=== PATIENT | female | born 1995 | race Caucasian/White ===

== ENCOUNTER → 2016-05-31 | Outpatient (CLI) | payer BC ==
[2016-01-21 11:48] VITALS: BP 120/68
[~2016-05-31] MED LIST: ETON68IM2 SQ; HYDR-971 PO; NAPR500T PO
--- NOTE | 2016-05-31 16:55 | RAD ---
INDICATION: Pelvic pain COMPARISON: None. TECHNIQUE: Grayscale and color ultrasound images uterus and adnexa. Transabdominal and transvaginal images obtained. FINDINGS: Uterus: 6.7 x 3.2 cm. Endometrial Stripe: 10 mm. Right Ovary: 2.8 x 2.0 x 1.8 cm. Flow Identified. Left Ovary: 3.2 x 3.7 x 1.8 cm. Flow Identified. There is fluid within the cervical region IMPRESSION: 1. Vascular flow seen to the bilateral ovaries. 2. Small free fluid in cervical region
== END | disposition home or self-care (01) ==
LOC: US 15:06
PROVIDERS: ATTEND Family Medicine
DX: R10.2 Pelvic and perineal pain (principal)
CPT/HCPCS: 76830; 76856

== ENCOUNTER → 2018-04-19 | Outpatient (CLI) | payer BC ==
[2016-01-21 11:48] VITALS: BP 120/68
[~2018-04-19] MED LIST changes: -ETON68IM2 SQ; +ETON68IM3 SQ; +HYDR-3164 PO; -HYDR-971 PO; +NAPR-683 PO; -NAPR500T PO
--- NOTE | 2018-04-19 15:39 | KCIC ---
CLINICAL INDICATION: Pelvic pain. Last menstrual period was 04/06/2018. COMPARISON: None available. TECHNIQUE: Transabdominal and endovaginal sonography was performed FINDINGS: The uterus measures 6.8 cm in length, 3.2 cm AP and 3.8 cm transverse. The endometrium measures 0.2 cm on endovaginal images. There is no focal myometrial abnormality. Trace fluid is seen within the cervix, incidentally seen. The right ovary measures 3.2 cm x 2.1 cm x 1.7 cm on endovaginal images. Flow is seen to the right ovary. The left ovary measures 2.3 cm x 1.8 cm x 2.3 cm on endovaginal images. Flow is seen to the left ovary. There is no free fluid. IMPRESSION: Incidentally noted trace fluid within the cervix. Otherwise normal sonographic survey of the uterus and adnexa without evidence of torsion or mass. Electronically signed by: Tawanda Venegas MD (04/19/2018 3:35 PM) [facility]
== END | disposition home or self-care (01) ==
LOC: KCIC US 14:30
PROVIDERS: ATTEND Family Medicine
DX: R10.2 Pelvic and perineal pain (principal)
CPT/HCPCS: 76830; 76856

== ENCOUNTER 2019-03-18 17:34 | Emergency (ER) | payer BC ==
[~2019-03-18] VITALS: Ht 170.2 cm; Wt 81.6 kg
[2019-03-18 18:53] LABS: BILIRUBIN,URINE SMALL (NEG); CLARITY,URINE CLEAR; COLOR,URINE AMBER; NITRITE,URINE NEGATIVE (NEG); PROTEIN,URINE 30 mg/dL (NEG-TRACE)
[2019-03-18 19:08] LABS: BACTERIA,URINE MANY /HPF (0-FEW); RBC,URINE RARE /HPF (0-2); SQUAMOUS EPITHELIAL CELL,UR MANY /LPF
[2019-03-18] MEDS ORDERED: IV NORMAL SALINE 1000ML BAG 1,000 ML IV ONE (19:15)
[2019-03-18 19:19] LABS: BASO % 0 % (0-3); EOS % 0 % (0-3); HEMATOCRIT 34.2 % (36.0-47.0); HEMOGLOBIN 11.8 g/dL (12.0-15.5); LYMPH % 9 % (24-48); MEAN CORPUSCULAR HEMOGLOBIN 29 pg (25-35); MEAN CORPUSCULAR HGB CONC 35 g/dL (31-37); MEAN CORPUSCULAR VOLUME 85 fL (79-100); MONO # 0.5 x10^3/uL (0.0-1.1); MONO % 5 % (0-9); NEUT # 9.7 x10^3/uL (1.8-7.7); NEUT % 86 % (31-73); PLATELET COUNT 253 x10^3/uL (140-400); RED BLOOD COUNT 4.02 x10^6/uL (3.50-5.40); RED CELL DISTRIBUTION WIDTH 13.6 % (11.5-14.5); WHITE BLOOD COUNT 11.2 x10^3/uL (4.0-11.0)
[2019-03-18 19:28] LABS: CALCIUM 8.7 mg/dL (8.5-10.1); CREATININE 0.7 mg/dL (0.6-1.0); GFR 103.7; POTASSIUM 3.7 mmol/L (3.5-5.1)
[2019-03-18 19:34] LABS: ALBUMIN 3.7 g/dL (3.4-5.0); ALBUMIN/GLOBULIN RATIO 0.9 (1.0-1.7); TOTAL BILIRUBIN 0.7 mg/dL (0.2-1.0)
[2019-03-18 19:58] LABS: % BANDS 2 % (0-9); % LYMPHS 12 % (24-48); % MONOS 5 % (0-10); % SEGS 81 % (35-66); PLT ESTIMATE ADEQUATE (ADEQUATE)
--- NOTE | 2019-03-18 20:41 | RAD ---
ACUTE ABDOMEN SERIES History: Left lower quadrant pain, hard balls of stool this a.m. Comparison: None. Findings: Single view of the chest, single upright view of the abdomen, 2 supine AP views of the abdomen are submitted. There is no infiltrate, pleural fluid, pneumothorax, free air. There is greater degree of retained stool in the right colon. There is a small radiopaque body projecting over the superior sacral region to the right of midline of uncertain AP location. There is some distention of the stomach. Impression: 1. There is greater quantity of retained stool in the right colon. 2. There is a small radiopaque object projecting in the superior sacral region on the right of uncertain AP location. 3. There is some distention of stomach. Electronically signed by: Álvaro Russell MD (03/18/2019 8:38 PM) [facility]
[2019-03-18 20:45] VITALS: BP 124/88
--- NOTE | 2019-03-18 20:49 | PHYS DOC ---
Past Medical History Past Medical History: No Pertinent History (DANN LE APRN) Past Surgical History: Other Additional Past Surgical Histo: Ovarian Cyst, [place] teeth. (DANN LE APRN) Alcohol Use: Occasionally Drug Use: None (DANN LE APRN) Attending Signature I have participated in the care of this patient and I have reviewed and agree with all pertinent clinical information above including history, exam, and recommendations. (AVILA LOPEZ MD) Adult General Chief Complaint Chief Complaint: ABDOMINAL PAIN HPI HPI Patient is a 23 year old female, accompanied by her mother, who presents to the emergency department with complaints of lower left quadrant pain and nausea since 4:00 this morning. Patient denies any diarrhea, vomiting, fever, cough, shortness breath, wheezing, chest pain, palpitations, back pain, dysuria, hematuria, increased urinary frequency, numbness, tingling, or weakness. She states that she had a bowel movement that consisted of a few small hard jesus of stool today. Patient states that she often has problems with bowel movements ranging from hard stools to loose stools and only has 2 or 3 bowel movements a week. Prior to today her last bowel movement had been about 3 days ago. She currently rates the pain 8 out of 10 on pain scale and describes it as a burning sensation. She denies any alleviating or exacerbating factors. All other ROS is neg unless otherwise noted in HPI. (DANN LE APRN) Review of Systems Review of Systems See Above (DANN LE APRN) Current Medications Current Medications Current Medications Medications (Trade) Dose Ordered Sig/Chelsey Start Time Stop Time Status Last Admin Dose Admin Sodium Chloride 1,000 ml @ 1,000 mls/hr 1X ONCE 03/18/19 19:15 03/18/19 20:14 DC 03/18/19 19:20 1,000 MLS/HR (AVILA LOPEZ MD) Allergies Allergies Allergies Coded Allergies Type Severity Reaction Last Updated Verified No Known Drug Allergies 01/20/16 No (AVILA LOPEZ MD) Physical Exam Physical Exam See Above Constitutional: Well developed, well nourished, no acute distress, non-toxic appearance. [] HENT: Normocephalic, atraumatic, bilateral external ears normal, oropharynx moist, no oral exudates, nose normal. [] Eyes: PERRLA, EOMI, conjunctiva normal, no discharge. [] Neck: Normal range of motion, no tenderness, supple, no stridor. [] Cardiovascular:Heart rate regular rhythm, no murmur [] Lungs & Thorax: Bilateral breath sounds clear to auscultation [] Abdomen: Bowel sounds normal, soft, LLQ TTP, no guarding, no rebound tenderness, no masses, no pulsatile masses. [] Skin: Warm, dry, no erythema, no rash. [] Back: No tenderness, no CVA tenderness. [] Extremities: No cyanosis, no clubbing, ROM intact Neurologic: Alert and oriented X 3, no focal deficits noted. [] Psychologic: Affect normal, judgement normal, mood normal. [] (DANN LE APRN) Current Patient Data Vital Signs Vital Signs Date Time Temp Pulse Resp B/P (MAP) Pulse Ox O2 Delivery O2 Flow Rate FiO2 03/18/19 20:45 68 16 124/88 (100) 98 Room Air 03/18/19 18:00 99.3 99.3 (AVILA LOPEZ MD) Lab Values Laboratory Tests Test 03/18/19 17:53 03/18/19 17:56 03/18/19 18:19 Urine Collection Type Unknown Urine Color Abigail Urine Clarity Clear Urine pH 8.0 Urine Specific [place] >=1.030 Urine Protein 30 mg/dL (NEG-TRACE) Urine Glucose (UA) Negative mg/dL (NEG) Urine Ketones (Stick) Trace mg/dL (NEG) Urine Blood Negative (NEG) Urine Nitrite Negative (NEG) Urine Bilirubin Small (NEG) Urine Urobilinogen Dipstick 1.0 mg/dL (0.2 mg/dL) Urine Leukocyte Esterase Small (NEG) Urine RBC Rare /HPF (0-2) Urine WBC 1-4 /HPF (0-4) Urine Squamous Epithelial Cells Many /LPF Urine Bacteria Many /HPF (0-FEW) Urine Mucus Marked /LPF POC Urine HCG, Qualitative Hcg negative (Negative) White Blood Count 11.2 x10^3/uL (4.0-11.0) H Red Blood Count 4.02 x10^6/uL (3.50-5.40) Hemoglobin 11.8 g/dL (12.0-15.5) L Hematocrit 34.2 % (36.0-47.0) L Mean Corpuscular Volume 85 fL (79-100) Mean Corpuscular Hemoglobin 29 pg (25-35) Mean Corpuscular Hemoglobin Concent 35 g/dL (31-37) Red Cell Distribution Width 13.6 % (11.5-14.5) Platelet Count 253 x10^3/uL (140-400) Neutrophils (%) (Auto) 86 % (31-73) H Lymphocytes (%) (Auto) 9 % (24-48) L Monocytes (%) (Auto) 5 % (0-9) Eosinophils (%) (Auto) 0 % (0-3) Basophils (%) (Auto) 0 % (0-3) Neutrophils # (Auto) 9.7 x10^3/uL (1.8-7.7) H Lymphocytes # (Auto) 1.0 x10^3/uL (1.0-4.8) Monocytes # (Auto) 0.5 x10^3/uL (0.0-1.1) Eosinophils # (Auto) 0.0 x10^3/uL (0.0-0.7) Basophils # (Auto) 0.0 x10^3/uL (0.0-0.2) Segmented Neutrophils % 81 % (35-66) H Band Neutrophils % 2 % (0-9) Lymphocytes % 12 % (24-48) L Monocytes % 5 % (0-10) Platelet Estimate Adequate (ADEQUATE) Sodium Level 138 mmol/L (136-145) Potassium Level 3.7 mmol/L (3.5-5.1) Chloride Level 102 mmol/L (98-107) Carbon Dioxide Level 26 mmol/L (21-32) Anion Gap 10 (6-14) Blood Urea Nitrogen 8 mg/dL (7-20) Creatinine 0.7 mg/dL (0.6-1.0) Estimated GFR (Cockcroft-Gault) 103.7 BUN/Creatinine Ratio 11 (6-20) Glucose Level 116 mg/dL (70-99) H Calcium Level 8.7 mg/dL (8.5-10.1) Total Bilirubin 0.7 mg/dL (0.2-1.0) Aspartate Amino Transferase (AST) 18 U/L (15-37) Alanine Aminotransferase (ALT) 22 U/L (14-59) Alkaline Phosphatase 64 U/L (46-116) Total Protein 8.0 g/dL (6.4-8.2) Albumin 3.7 g/dL (3.4-5.0) Albumin/Globulin Ratio 0.9 (1.0-1.7) L Laboratory Tests 03/18/19 18:19 Laboratory Tests 03/18/19 18:19 Microbiology 03/18/19 Urine Culture - Final, Complete 03/18/19 Urine Culture Result 1 (LAUREN) - Final, Complete (AVILA LOPEZ MD) EKG EKG [] (DANN LE APRN) Radiology/Procedures Radiology/Procedures PROCEDURE: ACUTE ABDOMEN SERIES ACUTE ABDOMEN SERIES History: Left lower quadrant pain, hard balls of stool this a.m. Comparison: None. Findings: Single view of the chest, single upright view of the abdomen, 2 supine AP views of the abdomen are submitted. There is no infiltrate, pleural fluid, pneumothorax, free air. There is greater degree of retained stool in the right colon. There is a small radiopaque body projecting over the superior sacral region to the right of midline of uncertain AP location. There is some distention of the stomach. Impression: 1. There is greater quantity of retained stool in the right colon. 2. There is a small radiopaque object projecting in the superior sacral region on the right of uncertain AP location. 3. There is some distention of stomach. [] (DANN LE APRN) Course & Med Decision Making Course & Med Decision Making Pertinent Labs and Imaging studies reviewed. (See chart for details) CBC revealed a white blood cell count 11.2, hemoglobin was 11.8, hematocrit 34.2, otherwise unremarkable; CMP: Glucose is 116 otherwise unremarkable, UA was unremarkable Acute abdominal series revealed moderate amount of stool indicative of constipation. I discussed these findings with the patient and advised her to drink a Full of MiraLAX twice daily until her stools are normal. Follow-up with her primary care doctor for further evaluation of IBS symptoms. Return to the ER symptoms worsen. The patient and her mother verbalized an understanding of home care, medications, follow-up, and return to ED instructions and were in agr eement with the plan of care. [] (BOGUSLADANN [place] Disclaimer Dragon Disclaimer This electronic medical record was generated, in whole or in part, using a voice recognition dictation system. (DANN LE APRN) Departure Departure Impression: Primary Impression: Constipation Additional Impression: Abdominal pain Disposition: HOME, SELF-CARE Condition: STABLE Referrals: NO PCP (PCP) Patient Instructions: Abdominal Pain, [id number], Constipation, Adult, [id number] Additional Instructions: Recommend that you take a capful of MiraLAX twice daily until your stools are soft and normal. Increase clear fluids and fiber intake. Follow-up with your primary care doctor for further evaluation of your irritable bowel symptoms. Return to the ER if your symptoms worsen. Problem Qualifiers Primary Impression: Constipation Constipation type: unspecified constipation type Qualified Codes: K59.00 - Constipation, unspecified Additional Impression: Abdominal pain Abdominal location: left lower quadrant Qualified Codes: R10.32 - Left lower quadrant pain DANN LE APRN Mar 18, 2019 20:49 AVILA LOPEZ MD Mar 21, 2019 18:20
== END 2019-03-18 21:06 | disposition home or self-care (01) ==
LOC: ER 17:34
DX: K59.00 Constipation, unspecified (principal); R10.32 Left lower quadrant pain; Z98.890 Other specified postprocedural states
CPT/HCPCS: 36415; 74022; 80053; 81001; 81025; 85007; 85025; 87086; 99285; J7030